=== PATIENT | female | born 1945 | race Caucasian/White ===

== ENCOUNTER 2018-04-07 12:00 | Emergency (ER) | payer MEDICARE ==
[~2018-04-07] VITALS: Ht 167.6 cm; Wt 57.2 kg
[2018-04-07] MEDS ORDERED: LIDOCAINE 1% 5ML-MPF INJ ONE (12:15)
[2018-04-07] MEDS ORDERED: SODIUM CHLORIDE 0.9% 1000ML 1,000 ML IV SCH (12:15)
[2018-04-07] MEDS ORDERED: ACETAMINOPHEN 325 MG TAB PO ONE (12:15)
[2018-04-07 13:01] VITALS: BP 147/66
== END 2018-04-07 13:04 | disposition home or self-care (01) ==
LOC: FSED 12:00
DX: S81.812A Laceration without foreign body, left lower leg, initial encounter (principal); W22.8XXA Striking against or struck by other objects, initial encounter; Y92.003 Bedroom of unspecified non-institutional (private) residence as the place of occurrence of the external cause
CPT/HCPCS: 99283; J7030

== ENCOUNTER 2018-04-17 08:47 | Emergency (ER) | payer MEDICARE ==
[~2018-04-17] VITALS: Ht 167.6 cm; Wt 57.2 kg
== END 2018-04-17 09:33 | disposition home or self-care (01) ==
LOC: FSED 08:47
DX: Z48.02 Encounter for removal of sutures (principal)
CPT/HCPCS: 99283; S0630

== ENCOUNTER 2018-07-25 09:20 | Emergency (ER) | payer MEDICARE, OTHER ==
[~2018-07-25] VITALS: Ht 167.6 cm; Wt 57.2 kg
--- OUTSIDE RECORDS SUMMARY | 2018-07-25 09:22 | XMS REPORT | Continuity of Care Document ---
Author Author [facility] Interface Address Unknown Phone Unavailable Problems Problem Status Onset Date Classification Date Reported Comments Source Atrial fibrillation Active Problem 04/21/2018 Chapin Lawson Essential hypertension Active Problem 04/21/2018 Chapin Lawson Paroxysmal atrial fibrillation Active Problem 04/21/2018 Chapin Lawson Insomnia, unspecified Active Problem 04/21/2018 Chapin Lawson Chronic diastolic heart failure Active Problem 04/21/2018 Chapin Lawson Mild intermittent asthma, uncomplicated Active Problem 04/21/2018 Chapin Lawson Heart failure, unspecified Active Problem 04/21/2018 Chapin Lawson Hypothyroidism, unspecified Active Problem 04/21/2018 Chapin Lawson Other specified hypothyroidism Active Diagnosis 04/21/2018 Chapin Lawson Allergic rhinitis, unspecified Active Problem 04/21/2018 Chapin Lawson Unspecified essential hypertension Active Problem 04/21/2018 Chapin Lawson Intrinsic asthma, unspecified Active Problem 04/21/2018 Chapin Lawson Intrinsic asthma, with exacerbation Active Problem 04/21/2018 Chapin Lawson Cirrhosis of liver without mention of alcohol Active Problem 04/21/2018 Chapin Lawson Unspecified hypothyroidism Active Problem 04/21/2018 Chapin Lawson Congestive heart failure, unspecified Active Problem 04/21/2018 Chapin Lawson Unspecified cardiac dysrhythmia Active Problem 04/21/2018 Chapin Lawson Allergic rhinitis, cause unspecified Active Problem 04/21/2018 Chapin Lawson Acute sinusitis, unspecified Active Diagnosis 01/15/2018 Chpain Lawson Acute bronchitis, unspecified Active Diagnosis 01/15/2018 Chapin Lawson Anemia, unspecified Active Diagnosis 04/21/2018 Chapin Lawson Cellulitis of left upper limb Active Diagnosis 04/21/2018 Chapin Lawson Laceration with foreign body of left forearm, initial encounter Active Diagnosis 04/21/2018 Chapin Lawson Medications Medication Details Route Status Patient Instructions Ordering Provider Order Date Source Augmentin 1 tablet Orally Active 875-125 MG Orally every 12 hrs Lawson 03/11/2018 Chapin Lawson Spironolactone take 1 tablet by mouth every day Orally Active 50 MG Orally Once a day Lawson 01/16/2018 Chapin Lawson Doxycycline Monohydrate 1 capsule Orally Active 100 mg Orally every 12 hrs [facility] 09/04/2017 Chapin Lawson Cefdinir 1 capsule Orally Active 300 MG Orally every 12 hrs [facility] 08/19/2017 Chapin Lawson Alprazolam 1 tablet Orally Active 0.5 MG Orally once every night prn [facility] 07/20/2017 Chapin Lawson Zantac 150 Maximum Strength 1 tablet Orally Active 150 MG Orally Twice a day [facility] 11/19/2015 Chapin Lawson Astelin 1 puff in each nostril Nasally Active 137 MCG/SPRAY Nasally Twice a day [facility] 07/25/2013 Chapin Lawson Valtrex 1 tablet Orally Active 1 GM Orally tid [facility] 09/15/2011 Chapin Lawson Sotalol HCl 1 tablet Orally Active 80 MG Orally Twice a day Lawson Chapin Lawson Furosemide take 1 tablet by mouth every day Orally Active 20 mg Orally [facility] Chapin Lawson Flonase 2 spray in each nostril Nasally Active 50 MCG/ACT Nasally Once a day Renny Lawson Synthroid take one tablet by mouth on an empty stomach in the morning once a day Orally Active 125 MCG Orally daily Renny Lawson ProAir HFA 2 puffs as needed Inhalation Active 108 (90 Base) MCG/ACT Inhalation every 4 hrs [facility] Chapin Lawson Isosorbide Mononitrate CR 1 tablet Orally Active 30 MG Orally Once a day Renny Lawson Eliquis 1 tablet Orally Active 5 MG Orally once a day Renny Lawson Medrol (Charles) as directed Orally Active 4 mg Orally Renny Lawson Atenolol 1 tablet Orally Active 50 MG Orally Once a day Renny Lawson Flonase 2 sprays in each nostril Nasally Active 50 MCG/ACT Nasally Once a day Renny Lawson Synthroid TAKE 1 TABLET BY MOUTH EVERY MORNING ON AN EMPTY STOMACH NA Active 125 Renny Lawson Symbicort 2 puffs Inhalation Active 80-4.5 MCG/ACT Inhalation Twice a day Lawson Chapin Lawson Allergies, Adverse Reactions, Alerts Substance Category Reaction Severity Reaction type Status Date Reported Comments Source Codeine Adverse Reaction Info Not Available Adverse Reaction Active 03/11/2018 Chapin Lawson Immunizations Immunization Date Given Site Status Last Updated Comments Source Results Order Name Results Value Reference Range Date Interpretation Comments Source Vital Signs Vital Sign Value Date Comments Source Weight 126 03/11/2018 Chapin Lawson Height 66 03/11/2018 Chapin Lawson Respitory Rate 17 03/11/2018 Chapin Lawson Heart Rate 70 03/11/2018 Chapin Y Lawson Diastolic (mm Hg) 72 03/11/2018 Chapin Y Lawson Systolic (mm Hg) 118 03/11/2018 Chapin Y Lawson Temperature Oral (F) 98.2 F 03/11/2018 Chapin Aquilino Lawson Weight 140 10/02/2017 Chapin Y Lawson Height 66 10/02/2017 Chapin Y Lawson Respitory Rate 16 10/02/2017 Chapin Y Lawson Heart Rate 69 10/02/2017 Chapin Y Lawson Diastolic (mm Hg) 72 10/02/2017 Chapin Y Lawson Systolic (mm Hg) 126 10/02/2017 Chapin Y Lawson Temperature Oral (F) 98.0 F 10/02/2017 Chapin Y Renny Weight 144 09/04/2017 Chapin Y Renny Height 66 09/04/2017 Hcapin Y Lawson Respitory Rate 16 09/04/2017 Chapin Y Renny Heart Rate 87 09/04/2017 Chapin Y Renny Diastolic (mm Hg) 70 09/04/2017 Chapin Y Renny Systolic (mm Hg) 110 09/04/2017 Chapin Y Renny Temperature Oral (F) 98.4 F 09/04/2017 Chapin Aquilino Lawson Weight 141 08/19/2017 Chapin Y Renny Height 66 08/19/2017 Chapin Y Renny Respitory Rate 16 08/19/2017 Chapin Aquilino Lawson Heart Rate 78 08/19/2017 Chapin Y Lawson Diastolic (mm Hg) 76 08/19/2017 Chapin Y Lawson Systolic (mm Hg) 118 08/19/2017 Chapin Y Lawson Temperature Oral (F) 97.9 F 08/19/2017 Chapin Lawson Encounters Location Location Details Encounter Type Encounter Number Reason For Visit Attending Provider ADM Date DC Date Status Source Procedures Procedure Code Date Perfomer Comments Source
--- OUTSIDE RECORDS SUMMARY | 2018-07-25 09:22 | XMS REPORT | Clinical Summary ---
Author Author [facility] Organization [facility] Address Unknown Phone Unavailable Care Team Providers Care Director Of Pupil Personnel Program Name Role Phone Chapin Lawson DO PCP Allergies Comments Active Allergy Reactions Severity Noted Date Hallucinations; suicidal ideation Codeine Other (See 10/05/2017 Comments) Medications End Date Status Medication Sig Dispensed Refills Start Date Active levothyroxine (SYNTHROID, Take 125 mcg 0 LEVOXYL) 125 mcg tablet by mouth every morning. Active ELIQUIS 5 mg tablet 2 (two) times 3 a day. 8 Active COMBIGAN 0.2-0.5 % Administer 1 3 ophthalmic solution drop to both 7 eyes 2 (two) times a day. Active dorzolamide (TRUSOPT) 2 % Administer 1 0 ophthalmic solution drop to the right eye 2 (two) times a day. Active albuterol (PROAIR Inhale 1 puff 0 HFA,PROVENTIL as needed. HFA,VENTOLIN HFA) 90 mcg/actuation inhaler Active ALPRAZolam (XANAX) 0.5 MG as needed. 0 tablet 7 Active fluticasone (FLONASE) 50 every 0 mcg/actuation nasal spray morning. 8 Active cycloSPORINE (RESTASIS) 1 drop 2 0 0.05 % ophthalmic (two) times a emulsion day. Active atenolol (TENORMIN) 50 MG Take 50 mg by 0 tablet mouth daily. Active flecainide (TAMBOCOR) 150 Take 150 mg 0 MG tablet by mouth 2 (two) times a day. Active spironolactone Take 50 mg by 0 (ALDACTONE) 50 MG tablet mouth daily. Active furosemide (LASIX) 40 mg Take 40 mg by 0 tablet mouth 2 (two) times a day. Active ranitidine (ZANTAC 75) 75 Take 75 mg by 0 MG tablet mouth daily. 04/23/2018 Discontinued sotalol (BETAPACE) 80 MG 2 (two) times 3 tablet a day. 8 04/23/2018 Discontinued spironolactone Take 100 mg 0 (ALDACTONE) 100 MG tablet by mouth every morning. 04/23/2018 Discontinued furosemide (LASIX) 20 mg Take 20 mg by 0 tablet mouth every morning. 11/23/2017 SUPREP BOWEL PREP KIT Take 2 354 mL 0 17.5-3.13-1.6 gram recon Bottles (354 8 soln mL total) by mouth once for 1 dose. Take as directed by physician 12/30/2017 traMADol (ULTRAM) 50 mg Take 1 tablet 30 tablet 0 tablet (50 mg total) 8 by mouth every 6 (six) hours as needed for moderate pain for up to 5 days. 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 Cui-following; pt forgot PPM card Cancer of ascending colon 12/23/2017 Malignant neoplasm of ascending colon 11/04/2017 Hepatitis B Encounters Care Team Description Date Type Specialty Viraj Cui MD Ep cardioversion [07440 (CPT)] 04/26/2018 Surgery Procedural Cardiology SinghBertha jimenes, [employer]ING [employer] FE[employer]ER 04/26/2018 Anesthesia Procedural Cardiology Event Viraj Cui MD AF (paroxysmal atrial fibrillation) 04/26/2018 Hospital Procedural Cardiology Encounter Man Munoz MD Malignant neoplasm of ascending colon (Primary Dx) 01/07/2018 Office Visit General Surgery Radha Knowles APRN 12/23/2017 Anesthesia General Surgery Event Man Munoz MD LAPAROSCOPIC RIGHT COLECTOMY 12/23/2017 Surgery General Surgery Man Munoz MD Cancer of ascending colon 12/23/2017 Hospital General Surgery - Encounter 12/25/2017 Man Munoz MD Preop examination (Primary Dx) 12/21/2017 Pre-Admit Pre-Admission Testing Testing Appointment John Pena MD Cirrhosis of liver without ascites, unspecified hepatic cirrhosis type 12/04/2017 Hospital Radiology Encounter John Pena MD Cirrhosis of liver without ascites, unspecified hepatic cirrhosis type (Primary Dx) 11/26/2017 Transcribe Radiology Orders Man Munoz MD 11/23/2017 Orders Only General Surgery Kemi Pleitez MD 11/16/2017 Hospital Radiology Encounter Man Munoz MD Preop examination (Primary Dx); Chronic atrial fibrillation; Congestive heart failure, unspecified congestive heart failure chronicity, unspecified congestive heart failure type; Anticoagulant long-term use; Dyspnea on exertion 11/16/2017 Pre-Admit Pre-Admission Testing Testing Appointment Man Munoz MD 11/06/2017 Orders Only General Surgery Man Munoz MD Malignant neoplasm of ascending colon (Primary Dx); Cirrhosis of liver with ascites, unspecified hepatic cirrhosis type 11/04/2017 Office Visit General Surgery Man Munoz MD Malignant neoplasm of cecum 11/04/2017 Lab Lab Man Munoz MD Malignant neoplasm of cecum 11/04/2017 Hospital Radiology Encounter Man Munoz MD Malignant neoplasm of cecum (Primary Dx) 10/30/2017 Orders Only General Surgery Man Munoz MD Malignant neoplasm of cecum (Primary Dx) 10/30/2017 Orders Only General Surgery Man Munoz MD Malignant neoplasm of hepatic flexure (Primary Dx) 10/14/2017 Office Visit General Surgery after 07/24/2017 Family History Medical History Relation Name Comments Cancer Father Hypertension Father Diabetes Mother Hypertension Mother Relation Name Status Comments Father Mother Social History Date Tobacco Use Types Packs/Day Years Used Never Smoker Smokeless Tobacco: Never Used Alcohol Use Drinks/Week oz/Week Comments No Sex Assigned at Date Recorded Not on file Industry Job Start Date Occupation Not on file Not on file Not on file Travel End Travel History Travel Start No recent travel history available. Last Filed Vital Signs Time Taken Vital Sign Reading 04/26/2018 9:30 AM CDT Blood Pressure 121/63 04/26/2018 9:30 AM CDT Pulse 66 04/26/2018 7:46 AM CDT Temperature 36.5 C (97.7 F) 04/26/2018 9:30 AM CDT Respiratory Rate 16 04/26/2018 9:30 AM CDT Oxygen Saturation 98% - Inhaled Oxygen - Concentration 04/26/2018 6:05 AM CDT Weight 57.4 kg (126 lb 8 oz) 04/26/2018 6:05 AM CDT Height 167.6 cm (5' 6") 04/26/2018 6:05 AM CDT Body Mass Index 20.42 Plan of Treatment Health Maintenance Due Date Last Done Comments BREAST CANCER SCREENING 1996 SHINGRIX VACCINE (1 of 2) 1996 ZOSTER VACCINE 2006 PNEUMOCOCCAL 2011 POLYSACCHARIDE VACCINE AGE 65 AND OVER PNEUMOCOCCAL-13 2011 INFLUENZA VACCINE 03/31/2018 COLON CANCER SCREENING 10/06/2027 10/06/2017 Implants Device Identifier Shelf Expiration Date Model / Serial / Lot Implanted Type Area Manufactur er [id number] / / Catheter Angio Handtools Repairer Ii 5fr 65cm Surgical N/A: N/A [employer] [place] - Implants; PERIPHERAL [id number] Expanders; INTERVENTI Implanted: 12/08/2017 (Quantity not Extenders; ON on file) Surgical VASCULAR Wires MIKAEL Procedures Comments Procedure Name Priority Date/Time Associated Diagnosis ECG 12-LEAD Routine 04/26/2018 8:25 AM CDT ECG 12-LEAD Routine 04/26/2018 7:45 AM CDT EP CARDIOVERSION Routine 04/26/2018 AF (paroxysmal atrial 7:34 AM CDT fibrillation) POC PANEL Routine 04/26/2018 6:48 AM CDT ESTIMATED GFR Routine 04/26/2018 6:48 AM CDT ECG PRE/POST OP Routine 04/26/2018 5:56 AM CDT ZZESTIMATED GFR Routine 12/25/2017 4:30 AM CDT PHOSPHORUS LEVEL Routine 12/25/2017 4:30 AM CDT MAGNESIUM LEVEL Routine 12/25/2017 4:30 AM CDT BASIC METABOLIC PANEL Routine 12/25/2017 4:30 AM CDT HC COMPLETE BLD COUNT Routine 12/25/2017 W/AUTO DIFF 4:30 AM CDT HC COMPLETE BLD COUNT Routine 12/24/2017 W/AUTO DIFF 5:30 AM CDT PROTHROMBIN TIME WITH INR Routine 12/24/2017 5:19 AM CDT ZZESTIMATED GFR Routine 12/24/2017 4:00 AM CDT HEPATIC FUNCTION PANEL Routine 12/24/2017 4:00 AM CDT PHOSPHORUS LEVEL Routine 12/24/2017 4:00 AM CDT MAGNESIUM LEVEL Routine 12/24/2017 4:00 AM CDT BASIC METABOLIC PANEL Routine 12/24/2017 4:00 AM CDT ECG 12-LEAD Routine 12/24/2017 1:12 AM CDT HI AN ELECTIVE Routine 12/23/2017 ENDOTRACHEAL AIRWAY 2:19 PM CDT Procedure Note - Vincent Kendrick, [employer]ER - 12/23/2017 2:19 PM CDT Airway Date/Time: 12/23/2017 1:36 PM Performed by: VINCENT KENDRICK Authorized by: DONNY COFFMAN Location: OR Urgency: Elective Difficult Airway: No Resident/C RNA/AA: VINCENT KENDRICK Performed by: resident/C RNA/AA Preoxygena betzaida with 100% O2: Yes C-spine Precaution s Maintained Throughout : Yes Mask Ventilatio n: Easy mask Final Airway Type: Endotrache al airway Final Endotrache al Airway: ETT Technique Used: Direct laryngosco py Devices/Me thods Used in Placement: Intubatin g stylet Insertion Site: Oral Blade Type: Carlos Laryngosco pe Blade/Vide olaryngosc ope Blade Size: 3 ETT Size (mm): 7.0 Measured from: Teeth ETT to Teeth (cm): 20 Placement Verified by: CO2 detection, direct visualizat ion and equal breath sounds Laryngosco pic view: Grade I - full view of glottis Rapid Sequence Induction (RSI): No Modified RSI: No Number of Attempts at Approach: 1 Easy atraumatic intubation ; dentition and oropharynx unchanged COLECTOMY, PARTIAL, 12/23/2017 Cancer of ascending colon LAPAROSCOPIC 12:45 PM CDT Case Notes AIRSEAL Special Needs AIRSEAL CV PACEMAKER PROGRAMMING STAT 12/23/2017 DL 10:23 AM CDT SURGICAL PATHOLOGY Routine 12/23/2017 REQUEST 8:45 AM CDT SURGICAL PATHOLOGY Routine 12/23/2017 REQUEST 8:45 AM CDT SURGICAL PATHOLOGY Routine 12/23/2017 REQUEST 8:45 AM CDT SURGICAL PATHOLOGY Routine 12/23/2017 REQUEST 8:45 AM CDT ANTIBODY IDENTIFICATION Routine 12/21/2017 4:04 PM CDT ZZESTIMATED GFR Routine 12/21/2017 4:04 PM CDT CBC HEMOGRAM Routine 12/21/2017 Preop examination 4:04 PM CDT TYPE AND SCREEN Routine 12/21/2017 Preop examination 4:04 PM CDT PARTIAL THROMBOPLASTIN Routine 12/21/2017 Preop examination TIME (PTT) 4:04 PM CDT PROTHROMBIN TIME WITH INR Routine 12/21/2017 Preop examination 4:04 PM CDT COMPREHENSIVE METABOLIC Routine 12/21/2017 Preop examination PANEL 4:04 PM CDT IR TRANSJUGULAR LIVER Routine 12/04/2017 Cirrhosis of liver BIOPSY 9:57 AM CDT without ascites, unspecified hepatic cirrhosis type SURGICAL PATHOLOGY Routine 12/04/2017 REQUEST 9:53 AM CDT XR CHEST 2 VW Routine 11/16/2017 Preop examination 9:48 AM CDT Congestive heart failure, unspecified congestive heart failure chronicity, unspecified congestive heart failure type Dyspnea on exertion ECG PRE/POST OP Routine 11/16/2017 Preop examination 9:01 AM CDT Chronic atrial fibrillation Congestive heart failure, unspecified congestive heart failure chronicity, unspecified congestive heart failure type C ANTIGEN PATIENT TYPING Routine 11/16/2017 8:54 AM CDT ANTIBODY IDENTIFICATION Routine 11/16/2017 8:54 AM CDT ZZESTIMATED GFR Routine 11/16/2017 8:54 AM CDT CBC HEMOGRAM Routine 11/16/2017 Preop examination 8:54 AM CDT TYPE AND SCREEN Routine 11/16/2017 Preop examination 8:54 AM CDT PARTIAL THROMBOPLASTIN Routine 11/16/2017 Preop examination TIME (PTT) 8:54 AM CDT Anticoagulant long-term use PROTHROMBIN TIME WITH INR Routine 11/16/2017 Preop examination 8:54 AM CDT Anticoagulant long-term use COMPREHENSIVE METABOLIC Routine 11/16/2017 Preop examination PANEL 8:[address] CHEST W CONTRAST STAT 11/04/2017 Malignant neoplasm of ABDOMEN W WO CONTRAST 3:00 PM SECURITY MESSENGER cecum PELVIS W CONTRAST ESTIMATED GFR Routine 11/04/2017 12:55 PM SECURITY MESSENGER POC CREATININE Routine 11/04/2017 12:55 PM SECURITY MESSENGER PARTIAL THROMBOPLASTIN Routine 10/30/2017 Malignant neoplasm of TIME (PTT) 10:36 AM SECURITY MESSENGER cecum PROTHROMBIN TIME WITH INR Routine 10/30/2017 Malignant neoplasm of 10:36 AM SECURITY MESSENGER cecum HEPATIC FUNCTION PANEL Routine 10/30/2017 Malignant neoplasm of 10:36 AM SECURITY MESSENGER cecum CARCINOEMBRYONIC ANTIGEN Routine 10/30/2017 Malignant neoplasm of (CEA) 10:36 AM SECURITY MESSENGER cecum COMPREHENSIVE METABOLIC Routine 10/30/2017 Malignant neoplasm of PANEL 10:36 AM SECURITY MESSENGER cecum CBC WITH PLATELET AND Routine 10/30/2017 Malignant neoplasm of DIFFERENTIAL 10:36 AM SECURITY MESSENGER cecum after 07/24/2017 Results * ECG 12 lead (04/26/2018 8:25 AM CDT) Only the most recent of 3 results within the time period is included. Ventricular rate 78 [facility] Atrial rate 78 [facility] HI interval 198 [facility] QRSD interval 82 [facility] QT interval 372 [facility] QTC interval 424 [facility] P axis 1 49 [facility] QRS axis 1 -2 [facility] T wave axis 27 [facility] EKG impression Sinus rhythm with occasional [facility] premature ventricular complexes-Inferior infarct , age undetermined-Abnormal ECG-In automated comparison with ECG of 26-APR-2018 07:45,-Sinus rhythm has replaced Electronic atrial pacemaker-Questionable change in QRS duration-Minimal criteria for Septal infarct are no longer present-Criteria for Lateral infarct are no longer present-Inferior infarct is now present- Performing Organization Address [facility] Phone Number [facility] [address] [place] [address] * Cv electrophysiology procedure (04/26/2018 7:34 AM CDT) Narrative Performed At [facility] After IV sedation with Propofol, Synchronized bipolar cardioversion was done using 200 Joules of energy delivered via AP Zoll Pads with conversion of the rhythm to AV paced. Performing Organization Address [facility] Phone Number [facility] [address] [place] [address] * Estimated GFR (04/26/2018 6:48 AM CDT) Only the most recent of 2 results within the time period is included. GFR Non Af Amer >90 mL/min/1.73 m2 [facility] DEPARTMENT OF PATHOLOGY AND GENOMIC MEDICINE GFR Af Amer >90 mL/min/1.73 m2 [facility] DEPARTMENT OF Comment: PATHOLOGY AND Chronic kidney disease: <60 GENOMIC MEDICINE mL/min/1.73m2 Kidney failure: <15 mL/min/1.73m2 The estimated GFR is calculated from the IDMS-traceable Modification of Diet in Renal Disease Equation. The accuracy of the calculation is poor when the creatinine is normal. Calculated values >90 mL/min/1.73m2 are not reported. This equation has not been validated in children (<18 years), women, the elderly (>70 years), or ethnic groups other than Caucasians and Americans. Specimen Blood Performing Organization Address [facility] Phone Number [place] [phone] PATHOLOGY AND GENOMIC MEDICINE * POC panel (04/26/2018 6:48 AM CDT) POC sodium 140 135 - 148 mmol/L [facility] DEPARTMENT OF PATHOLOGY AND GENOMIC MEDICINE POC potassium 4.1 3.5 - 5.0 mmol/L [facility] DEPARTMENT OF PATHOLOGY AND GENOMIC MEDICINE POC chloride 106 99 - 109 mmol/L [facility] DEPARTMENT OF PATHOLOGY AND GENOMIC MEDICINE POC CO2 23 (L) 24 - 31 mmol/L [facility] DEPARTMENT OF PATHOLOGY AND GENOMIC MEDICINE POC glucose 89 65 - 99 mg/dL [facility] DEPARTMENT OF PATHOLOGY AND GENOMIC MEDICINE POC BUN 26 (H) 8 - 24 mg/dL [facility] DEPARTMENT OF PATHOLOGY AND GENOMIC MEDICINE POC creatinine 0.6 0.5 - 0.9 mg/dl [facility] DEPARTMENT OF PATHOLOGY AND GENOMIC MEDICINE POC hematocrit 44 37 - 47 % [facility] DEPARTMENT OF PATHOLOGY AND GENOMIC MEDICINE POC anion gap 16 8 - 20 mmol/L [facility] DEPARTMENT OF Comment: PATHOLOGY AND Meter ID: [id number] GENOMIC MEDICINE Concrete Vibrator Operator: Milagro Santiago Performing Organization Address [facility] Phone Number [address] [address] PATHOLOGY AND GENOMIC MEDICINE * ECG Pre/Post Op (04/26/2018 5:56 AM CDT) Only the most recent of 2 results within the time period is included. Ventricular rate 70 [facility] Atrial rate 70 [facility] HI interval 192 [facility] QRSD interval 144 [facility] QT interval 476 [facility] QTC interval 514 [facility] P axis 1 96 [facility] QRS axis 1 119 [facility] T wave axis -47 [facility] EKG impression Ventricular-paced [facility] rhythm-Abnormal ECG-In automated comparison with ECG of 24-DEC-2017 01:12,-No significant change was found- Performing Organization Address City/State/Zipcode Phone Number [facility] [address] [place] [address] * Estimated GFR (12/25/2017 4:30 AM CDT) Only the most recent of 4 results within the time period is included. GFR Non Af Amer 55 (A) mL/min/1.73 m2 [facility] DEPARTMENT OF PATHOLOGY AND GENOMIC MEDICINE GFR Af Amer 66 mL/min/1.73 m2 [facility] DEPARTMENT OF Comment: PATHOLOGY AND Chronic kidney disease: <60 GENOMIC MEDICINE mL/min/1.73m2 Kidney failure: <15 mL/min/1.73m2 The estimated GFR is calculated from the IDMS-traceable Modification of Diet in Renal Disease Equation. The accuracy of the calculation is poor when the creatinine is normal. Calculated values >90 mL/min/1.73m2 are not reported. This equation has not been validated in children (<18 years), women, the elderly (>70 years), or ethnic groups other than Caucasians and Americans. Specimen Plasma specimen Performing Organization Address City/[facility] Phone Number [facility] [address] [place] [address] PATHOLOGY AND GENOMIC MEDICINE * CBC with platelet and differential (12/25/2017 4:30 AM CDT) Only the most recent of 3 results within the time period is included. WBC 11.20 (H) 4.50 - 11.00 k/uL [facility] DEPARTMENT OF PATHOLOGY AND GENOMIC MEDICINE RBC 3.36 (L) 4.20 - 5.50 m/uL [facility] DEPARTMENT OF PATHOLOGY AND GENOMIC MEDICINE HGB 9.1 (L) 12.0 - 16.0 g/dL [facility] DEPARTMENT OF PATHOLOGY AND GENOMIC MEDICINE HCT 29.6 (L) 37.0 - 47.0 % [facility] DEPARTMENT OF PATHOLOGY AND GENOMIC MEDICINE MCV 88.1 82.0 - 100.0 fL [facility] DEPARTMENT OF PATHOLOGY AND GENOMIC MEDICINE MCH 27.1 27.0 - 34.0 pg [facility] DEPARTMENT OF PATHOLOGY AND GENOMIC MEDICINE MCHC 30.7 (L) 31.0 - 37.0 g/dL [facility] DEPARTMENT OF PATHOLOGY AND GENOMIC MEDICINE RDW - SD 61.3 (H) 37.0 - 55.0 fL [facility] DEPARTMENT OF PATHOLOGY AND GENOMIC MEDICINE MPV 10.3 8.8 - 13.2 fL [facility] DEPARTMENT OF PATHOLOGY AND GENOMIC MEDICINE Platelet count 201 150 - 400 k/uL [facility] DEPARTMENT OF PATHOLOGY AND GENOMIC MEDICINE Nucleated RBC 0.00 /100 WBC [facility] DEPARTMENT OF PATHOLOGY AND GENOMIC MEDICINE Neutrophils 83.1 (H) 39.0 - 69.0 % [facility] DEPARTMENT OF PATHOLOGY AND GENOMIC MEDICINE Lymphocytes 8.5 (L) 25.0 - 45.0 % [facility] DEPARTMENT OF PATHOLOGY AND GENOMIC MEDICINE Monocytes 7.7 0.0 - 10.0 % [facility] DEPARTMENT OF PATHOLOGY AND GENOMIC MEDICINE Eosinophils 0.1 0.0 - 5.0 % [facility] DEPARTMENT OF PATHOLOGY AND GENOMIC MEDICINE Basophils 0.2 0.0 - 1.0 % [facility] DEPARTMENT OF PATHOLOGY AND GENOMIC MEDICINE Immature granulocytes 0.4Comment: "Immature 0.0 - 1.0 % [facility] DEPARTMENT OF granulocytes" (promyelocytes, PATHOLOGY AND myelocytes, metamyelocytes) GENOMIC MEDICINE Specimen Blood Performing Organization Address City/[facility] [place] [address] PATHOLOGY AND GENOMIC MEDICINE * Phosphorus level (12/25/2017 4:30 AM CDT) Only the most recent of 2 results within the time period is included. Phosphorus 2.3 (L) 2.4 - 4.5 mg/dL [facility] DEPARTMENT OF PATHOLOGY AND GENOMIC MEDICINE Specimen Plasma specimen Performing Organization Address City/[facility] [place] [address] PATHOLOGY AND [facility] * Magnesium level (12/25/2017 4:30 AM CDT) Only the most recent of 2 results within the time period is included. Magnesium 2.2 1.6 - 2.4 mg/dL [facility] DEPARTMENT OF PATHOLOGY AND GENOMIC MEDICINE Specimen Plasma specimen Performing Organization Address City/[facility] [place] [address] PATHOLOGY AND GENOMIC MEDICINE * Basic metabolic panel (12/25/2017 4:30 AM CDT) Only the most recent of 2 results within the time period is included. Sodium 135 135 - 148 mEq/L [facility] DEPARTMENT OF PATHOLOGY AND GENOMIC MEDICINE Potassium 4.3 3.5 - 5.0 mEq/L [facility] DEPARTMENT OF PATHOLOGY AND GENOMIC MEDICINE Chloride 104 98 - 112 mEq/L [facility] DEPARTMENT OF PATHOLOGY AND GENOMIC MEDICINE CO2 21 (L) 24 - 31 mEq/L [facility] DEPARTMENT OF PATHOLOGY AND GENOMIC MEDICINE Anion gap 10 7 - 15 mEq/L [facility] DEPARTMENT OF Comment: PATHOLOGY AND Starting from November GENOMIC MEDICINE , anion gap calculation no longer incorporates potassium. Please note the change. BUN 24 (H) 8 - 23 mg/dL [facility] DEPARTMENT OF PATHOLOGY AND GENOMIC MEDICINE Creatinine 1.0 (H) 0.5 - 0.9 mg/dL [facility] DEPARTMENT OF PATHOLOGY AND GENOMIC MEDICINE Glucose 111 (H) 65 - 99 mg/dL [facility] DEPARTMENT OF PATHOLOGY AND GENOMIC MEDICINE Calcium 8.1 (L) 8.8 - 10.2 mg/dL [facility] DEPARTMENT OF PATHOLOGY AND GENOMIC MEDICINE Specimen Plasma specimen Performing Organization Address City/[facility]/[place] [address] PATHOLOGY AND GENOMIC MEDICINE * Prothrombin time with INR (12/24/2017 5:19 AM CDT) Only the most recent of 4 results within the time period is included. Prothrombin time 15.7 (H) 12.0 - 15.0 sec [facility] DEPARTMENT OF PATHOLOGY AND GENOMIC MEDICINE INR 1.2 [facility] DEPARTMENT OF Comment: PATHOLOGY AND The International Normalized GENOMIC MEDICINE Ratio (INR) is a therapeutic monitoring tool for patients who are stable on oral anticoagulant therapy. An INR of 2.0-3.0 is suggested for deep vein thrombosis/pulmonary embolism. Specimen Blood Performing Organization Address City/[facility] Phone Number [address] [address] PATHOLOGY AND GENOMIC MEDICINE * Hepatic function panel (12/24/2017 4:00 AM CDT) Only the most recent of 2 results within the time period is included. Albumin 3.5 3.5 - 5.0 g/dL [facility] DEPARTMENT OF PATHOLOGY AND GENOMIC MEDICINE Total bilirubin 0.5 0.0 - 1.2 mg/dL [facility] DEPARTMENT OF PATHOLOGY AND GENOMIC MEDICINE Bilirubin direct <0.2 0.0 - 0.3 mg/dL [facility] DEPARTMENT OF PATHOLOGY AND GENOMIC MEDICINE Alkaline phosphatase 64 35 - 104 U/L [facility] DEPARTMENT OF PATHOLOGY AND GENOMIC MEDICINE Protein 6.8 6.3 - 8.3 g/dL [facility] DEPARTMENT OF Comment: PATHOLOGY AND GENOMIC MEDICINE 4.6-7.0 g/dL 1 week 4.4-7.6 g/dL 7 months-1year 5.1-7.3 g/dL 1-2 years5.6-7 .5 g/dL >3 years6.0-8 .0 g/dL 18-150 6.3-8.3 g/dL ALT 10 5 - 50 U/L [facility] DEPARTMENT OF PATHOLOGY AND GENOMIC MEDICINE AST 28 10 - 35 U/L [facility] DEPARTMENT OF PATHOLOGY AND GENOMIC MEDICINE Specimen Plasma specimen Performing Organization Address City/[facility] [place] [address] PATHOLOGY AND GENOMIC MEDICINE * CV pacemaker defib or ilr interrogation (12/23/2017 10:23 AM CDT) Narrative Performed At Performing Organization Address [facility] [place] [address] * Surgical pathology request (12/23/2017 8:45 AM CDT) Only the most recent of 5 results within the time period is included. [facility] DEPARTMENT OF PATHOLOGY AND GENOMIC MEDICINE Surgical pathology report See link below for PDF Lab [facility] DEPARTMENT OF Report PATHOLOGY AND GENOMIC MEDICINE Result status This is Supplemental Report to [facility] DEPARTMENT OF [id number] PATHOLOGY AND GENOMIC MEDICINE Performing Organization Address [facility] [place] [address] PATHOLOGY AND GENOMIC MEDICINE * Antibody identification (12/21/2017 4:04 PM CDT) Only the most recent of 2 results within the time period is included. Antibody ID POS, Anti-D [facility] DEPARTMENT OF PATHOLOGY AND GENOMIC MEDICINE Antibody ID POS, Anti-C [facility] DEPARTMENT OF PATHOLOGY AND GENOMIC MEDICINE Performing Organization Address City/[facility] [place] [address] PATHOLOGY AND GENOMIC MEDICINE * Partial thromboplastin time, activated (12/21/2017 4:04 PM CDT) Only the most recent of 3 results within the time period is included. PTT 33.5 23.0 - 36.0 sec [facility] DEPARTMENT OF Comment: PATHOLOGY AND PTT therapeutic range for GENOMIC MEDICINE unfractionated heparin is 61.0-112.0 seconds which corresponds to Anti-Xa 0.3-0.7 U/ml. Specimen Blood Performing Organization Address City/[facility]/Zipcode Phone Number [facility] [place] [address] PATHOLOGY AND GENOMIC MEDICINE * CBC hemogram (12/21/2017 4:04 PM CDT) Only the most recent of 2 results within the time period is included. WBC 5.71 4.50 - 11.00 k/uL [facility] DEPARTMENT OF PATHOLOGY AND GENOMIC MEDICINE RBC 4.11 (L) 4.20 - 5.50 m/uL [facility] DEPARTMENT OF PATHOLOGY AND GENOMIC MEDICINE HGB 11.1 (L) 12.0 - 16.0 g/dL [facility] DEPARTMENT OF PATHOLOGY AND GENOMIC MEDICINE HCT 36.1 (L) 37.0 - 47.0 % [facility] DEPARTMENT OF PATHOLOGY AND GENOMIC MEDICINE MCV 87.8 82.0 - 100.0 fL [facility] DEPARTMENT OF PATHOLOGY AND GENOMIC MEDICINE MCH 27.0 27.0 - 34.0 pg [facility] DEPARTMENT OF PATHOLOGY AND GENOMIC MEDICINE MCHC 30.7 (L) 31.0 - 37.0 g/dL [facility] DEPARTMENT OF PATHOLOGY AND GENOMIC MEDICINE RDW - SD 61.1 (H) 37.0 - 55.0 fL [facility] DEPARTMENT OF PATHOLOGY AND GENOMIC MEDICINE MPV 11.0 8.8 - 13.2 fL [facility] DEPARTMENT OF PATHOLOGY AND GENOMIC MEDICINE Platelet count 240 150 - 400 k/uL [facility] DEPARTMENT OF PATHOLOGY AND GENOMIC MEDICINE Nucleated RBC 0.00 /100 WBC [facility] DEPARTMENT OF PATHOLOGY AND GENOMIC MEDICINE Specimen Blood Performing Organization Address City/[facility] Phone Number [facility] [place] [address] PATHOLOGY AND GENOMIC MEDICINE * Type and screen (12/21/2017 4:04 PM CDT) Only the most recent of 2 results within the time period is included. ABO grouping A [facility] DEPARTMENT OF PATHOLOGY AND GENOMIC MEDICINE Rh type NEG [facility] DEPARTMENT OF PATHOLOGY AND GENOMIC MEDICINE Antibody screen (gel) POS [facility] DEPARTMENT OF PATHOLOGY AND GENOMIC MEDICINE Specimen Blood Performing Organization Address City/[facility]/Zipcode Phone Number [facility] [place] [address] PATHOLOGY AND GENOMIC MEDICINE * Comprehensive metabolic panel (12/21/2017 4:04 PM CDT) Only the most recent of 3 results within the time period is included. Sodium 138 135 - 148 mEq/L [facility] DEPARTMENT OF PATHOLOGY AND GENOMIC MEDICINE Potassium 4.1 3.5 - 5.0 mEq/L [facility] DEPARTMENT OF PATHOLOGY AND GENOMIC MEDICINE Chloride 100 98 - 112 mEq/L [facility] DEPARTMENT OF PATHOLOGY AND GENOMIC MEDICINE CO2 21 (L) 24 - 31 mEq/L [facility] DEPARTMENT OF PATHOLOGY AND GENOMIC MEDICINE Anion gap 17 (H) 7 - 15 mEq/L [facility] DEPARTMENT OF Comment: PATHOLOGY AND Starting from November GENOMIC MEDICINE , anion gap calculation no longer incorporates potassium. Please note the change. BUN 23 8 - 23 mg/dL [facility] DEPARTMENT OF PATHOLOGY AND GENOMIC MEDICINE Creatinine 1.1 (H) 0.5 - 0.9 mg/dL [facility] DEPARTMENT OF PATHOLOGY AND GENOMIC MEDICINE Glucose 66 65 - 99 mg/dL [facility] DEPARTMENT OF PATHOLOGY AND GENOMIC MEDICINE Calcium 9.6 8.8 - 10.2 mg/dL [facility] DEPARTMENT OF PATHOLOGY AND GENOMIC MEDICINE Protein 7.6 6.3 - 8.3 g/dL [facility] DEPARTMENT OF Comment: PATHOLOGY AND [place] GENOMIC MEDICINE 4.6-7.0 g/dL 1 week 4.4-7.6 g/dL 7 months-1year 5.1-7.3 g/dL 1-2 years5.6-7 .5 g/dL >3 years6.0-8 .0 g/dL 18-150 6.3-8.3 g/dL Albumin 3.8 3.5 - 5.0 g/dL [facility] DEPARTMENT OF PATHOLOGY AND GENOMIC MEDICINE A/G ratio 1.0 0.7 - 3.8 [facility] DEPARTMENT OF PATHOLOGY AND GENOMIC MEDICINE Alkaline phosphatase 81 35 - 104 U/L [facility] DEPARTMENT OF PATHOLOGY AND GENOMIC MEDICINE AST 25 10 - 35 U/L [facility] DEPARTMENT OF PATHOLOGY AND GENOMIC MEDICINE ALT 14 5 - 50 U/L [facility] DEPARTMENT OF PATHOLOGY AND GENOMIC MEDICINE Total bilirubin 0.3 0.0 - 1.2 mg/dL [facility] DEPARTMENT OF PATHOLOGY AND GENOMIC MEDICINE Specimen Plasma specimen Performing Organization Address City/State/Zipcode Phone Number [facility] DEPARTMENT OF [address] [place] [address] PATHOLOGY AND GENOMIC MEDICINE * IR Transjugular Liver Biopsy (12/04/2017 9:57 AM CDT) Narrative Performed At Examination:IR TRANSJUGULAR LIVER BIOPSY [facility] Clinical history:"K74.60 Unspecified cirrhosis of liver, K74.60" Comparison:Abdominopelvic CT imaging dated 11/04/2017 Anesthesia:Lidocaine solution was injected into the involved tissues. Conscious sedation:After the risks and benefits of conscious sedation were discussed, midazolam and fentanyl were administered intravenously.Throughout the conscious sedation duration, the patient was continuously monitored by a registered nurse. The physician intraservice [id number] time with the patient was 21 minutes. Reference air kerma:64 mGy. Technique:The patient was prepared using sterile technique after signed, informed consent was obtained. Maximal sterile barrier technique was implemented. The right internal jugular vein was imaged sonographically and was found to be patent and appropriate percutaneous access.Under real-time sonographic guidance, the vessel was accessed using a 21-gauge needle with real-time visualization of needle entry into the vessel.A sonographic image of the accessed vessel was obtained as permanent documentation.Through the needle, a microwire was inserted and advanced centrally.Using routine Seldinger technique, the microwire was exchanged for a standard guidewire that was advanced into the inferior vena cava.After the percutaneous tissues were dilated, a 9 Croatian vascular sheath was introduced [id number] and advanced into the right hepatic vein. Venography of the cannulated vein, of the junction of the hepatic veins and inferior vena cava, and of the uppermost portion of the inferior vena cava was performed by injection of contrast through the sheath with the tip in the sheath positioned within the cannulated hepatic vein.This demonstrated unremarkable patency and dilatation/prominence of the cannulated middle hepatic vein without evidence of venous outflow obstruction; these findings are without change as compared to the aforementioned CT imaging.Additionally, the confluence of the hepatic vein/inferior vena cava and the opacified portions of the inferior vena cava are similarly patent, prominent, and otherwise unremarkable in venographic appearance. The 18-gauge core biopsy needle system was introduced through the sheath and three 18-gauge core samples of the right liver lobe obtained using routine technique.The needle system was removed. A 5 Croatian angled catheter was introduced through the sheath, positioned accordingly, and pressure measurements obtained as follows: "Wedged" hepatic vein:17 mmHg "Free" hepatic vein:13 mmHg Right atrium:10 mmHg All instrumentation was removed from the patient's neck and hemostasis established by holding direct pressure at the venotomy. Estimated blood loss:Less than 2 cc. Complications:None. Specimens removed:As above. Assistants:None. IMPRESSION: 18-gauge core biopsy samples of the right liver lobe were obtained via a transjugular route using image guidance and without incident as described above. Transcatheter venous pressure measurements were obtained and are listed above. Hepatic venography was performed and reveals no evidence of venous stenosis or other abnormality that might cause hepatic venous outflow obstruction.The hepatic veins and the suprahepatic inferior vena cava are prominent, as before. Thank you for allowing us to participate in the care of your patient. [facility]-[id number] Procedure Note Hm Interface, Radiology Results Incoming - 12/04/2017 3:02 PM CDT Examination: IR TRANSJUGULAR LIVER BIOPSY Clinical history: "K74.60 Unspecified cirrhosis of liver, K74.60" Comparison: Abdominopelvic CT imaging dated 11/04/2017 Anesthesia: Lidocaine solution was injected into the involved tissues. Conscious sedation: After the risks and benefits of conscious sedation were discussed, midazolam and fentanyl were administered intravenously. Throughout the conscious sedation duration, the patient was continuously monitored by a registered nurse. The physician intraservice [id number] time with the patient was 21 minutes. Reference air kerma: 64 mGy. Technique: The patient was prepared using sterile technique after signed, informed consent was obtained. Maximal sterile barrier technique was implemented. The right internal jugular vein was imaged sonographically and was found to be patent and appropriate percutaneous access. Under real-time sonographic guidance, the vessel was accessed using a 21-gauge needle with real-time visualization of needle entry into the vessel. A sonographic image of the accessed vessel was obtained as permanent documentation. Through the needle, a microwire was inserted and advanced centrally. Using routine Seldinger technique, the microwire was exchanged for a standard guidewire that was advanced into the inferior vena cava. After the percutaneous tissues were dilated, a 9 Croatian vascular sheath was introduced [id number] and advanced into the right hepatic vein. Venography of the cannulated vein, of the junction of the hepatic veins and inferior vena cava, and of the uppermost portion of the inferior vena cava was performed by injection of contrast through the sheath with the tip in the sheath positioned within the cannulated hepatic vein. This demonstrated unremarkable patency and dilatation/prominence of the cannulated middle hepatic vein without evidence of venous outflow obstruction; these findings are without change as compared to the aforementioned CT imaging. Additionally, the confluence of the hepatic vein/inferior vena cava and the opacified portions of the inferior vena cava are similarly patent, prominent, and otherwise unremarkable in venographic appearance. The 18-gauge core biopsy needle system was introduced through the sheath and three 18-gauge core samples of the right liver lobe obtained using routine technique. The needle system was removed. A 5 Croatian angled catheter was introduced through the sheath, positioned accordingly, and pressure measurements obtained as follows: "Wedged" hepatic vein: 17 mmHg "Free" hepatic vein: 13 mmHg Right atrium: 10 mmHg All instrumentation was removed from the patient's neck and hemostasis established by holding direct pressure at the venotomy. Estimated blood loss: Less than 2 cc. Complications: None. Specimens removed: As above. Assistants: None. IMPRESSION: 18-gauge core biopsy samples of the right liver lobe were obtained via a transjugular route using image guidance and without incident as described above. Transcatheter venous pressure measurements were obtained and are listed above. Hepatic venography was performed and reveals no evidence of venous stenosis or other abnormality that might cause hepatic venous outflow obstruction. The hepatic veins and the suprahepatic inferior vena cava are prominent, as before. Thank you for allowing us to participate in the care of your patient. [facility]-[id number] Performing Organization Address City/State/Zipcode Phone Number [facility] [address] [place] [address] * XR Chest 2 Vw (11/16/2017 9:48 AM CDT) Narrative Performed At Study:[facility] 2 [facility]: Z01.818 Encounter for other preprocedural examination, I50.9 Heart failureunspecified, Congestive Heart Failure, SHORTNESS OF BREATH, Preop COMPARISON: October 27, 2013 IMPRESSION: A single view of the chest. Left chest pacer and leads are in stable position.There is no focal consolidation, pleural effusion or pneumothorax.Cardiac silhouette is mildly enlarged, stable.Visualized osseous structures arestable. [facility]-[id number] Procedure Note Hm Interface, Radiology Results Incoming - 11/16/2017 10:04 AM CDT Study:XR CHEST 2 VW History: Z01.818 Encounter for other preprocedural examination, I50.9 Heart failure unspecified, Congestive Heart Failure, SHORTNESS OF BREATH, Preop COMPARISON: October 27, 2013 IMPRESSION: A single view of the chest. Left chest pacer and leads are in stable position. There is no focal consolidation, pleural effusion or pneumothorax. Cardiac silhouette is mildly enlarged, stable. Visualized osseous structures are stable. [facility]-[id number] Performing Organization Address City/State/Zipcode Phone Number [facility] [address] [place] [address] * C antigen patient typing (11/16/2017 8:54 AM CDT) C Antigen Patient Typing NEG [facility] DEPARTMENT OF PATHOLOGY AND GENOMIC MEDICINE Performing Organization Address City/State/Zipcode Phone Number [facility] DEPARTMENT OF [address] [place] [phone] PATHOLOGY AND GENOMIC MEDICINE * CT Chest W Contrast Abdomen W Wo Contrast Pelvis W Contrast (11/04/2017 3:00 PM SECURITY MESSENGER) Narrative Performed At EXAMINATION:CT CHEST W CONTRAST ABDOMEN W WO CONTRAST PELVIS W CONTRAST [facility] CLINICAL HISTORY:C18.0 Malignant neoplasm of cecum, Colon Cancer TECHNIQUE: Axial images of the abdomen were obtained prior to intravenous contrast administration. Multiple axial images of the chest, abdomen, and pelvis were obtained following intravenous administration of iodinated contrast. Sagittal and coronal computerized reformatted images were obtained. CT imaging was performed with iterative reconstruction techniques and/or automated exposure control to reduce radiation dose. COMPARISON:None. FINDINGS: Chest: 1. There are scattered tiny sub-5 mm clustered centrilobular nodules in the right upper and middle lobes, some demonstrating tree-in-bud distribution, compatible with sequela of infectious bronchiolitis. They are likely chronic. There are few calcified bilateral granulomas and minimal scarring is present in the lingula and middle lobe. There is no consolidation and no nodules that are suspicious for metastatic disease are seen. 2.No pleural or pericardial effusion is present. 3.No significant thoracic lymphadenopathy is seen. 4.There is moderate cardiomegaly with right atrial and right ventricular dilation. Dual-chamber pacemaker is present. 5.Bilateral breast implants are present. Abdomen and Pelvis: 1. Irregular circumferential thickening of the proximal ascending colon likely represents the primary malignancy, and involves an approximately 4 cm length, beginning at the ileocecal junction. 2.There are a few mildly prominent adjacent ileocecal lymph nodes, for example measuring 10 x 5 mm on image 193, nonspecific. No other suspicious lymph nodes are seen. 3.The liver is cirrhotic, without liver mass. There is mild perihepatic ascites consistent with portal hypertension. No splenomegaly or varices are seen. 4.Mild gallbladder wall thickening is most likely due to underlying cirrhosis rather than inflammatory gallbladder disease. 5.The pancreas, adrenals, kidneys, and urinary bladder are unremarkable. 6.The stomach and small bowel are unremarkable. 7.There is scattered atherosclerosis. Skeletal: No suspicious skeletal lesion is seen. IMPRESSION: 1.Segmental thickening of the ascending colon consistent with neoplasm. Small nonspecific but not definitively metastatic regional ileocolic lymph nodes. No signs of distant metastatic disease. 2.Cirrhosis and mild ascites. 3.Tiny postinflammatory nodules in the right lung. 4.Right-sided cardiomegaly. [facility]-[id number] Procedure Note [facility], Radiology Results Incoming - 11/04/2017 3:30 PM SECURITY MESSENGER EXAMINATION: CT CHEST W CONTRAST ABDOMEN W WO CONTRAST PELVIS W CONTRAST CLINICAL HISTORY: C18.0 Malignant neoplasm of cecum, Colon Cancer TECHNIQUE: Axial images of the abdomen were obtained prior to intravenous contrast administration. Multiple axial images of the chest, abdomen, and pelvis were obtained following intravenous administration of iodinated contrast. Sagittal and coronal computerized reformatted images were obtained. CT imaging was performed with iterative reconstruction techniques and/or automated exposure control to reduce radiation dose. COMPARISON: None. FINDINGS: Chest: 1. There are scattered tiny sub-5 mm clustered centrilobular nodules in the right upper and middle lobes, some demonstrating tree-in-bud distribution, compatible with sequela of infectious bronchiolitis. They are likely chronic. There are few calcified bilateral granulomas and minimal scarring is present in the lingula and middle lobe. There is no consolidation and no nodules that are suspicious for metastatic disease are seen. 2. No pleural or pericardial effusion is present. 3. No significant thoracic lymphadenopathy is seen. 4. There is moderate cardiomegaly with right atrial and right ventricular dilation. Dual-chamber pacemaker is present. 5. Bilateral breast implants are present. Abdomen and Pelvis: 1. Irregular circumferential thickening of the proximal ascending colon likely represents the primary malignancy, and involves an approximately 4 cm length, beginning at the ileocecal junction. 2. There are a few mildly prominent adjacent ileocecal lymph nodes, for example measuring 10 x 5 mm on image 193, nonspecific. No other suspicious lymph nodes are seen. 3. The liver is cirrhotic, without liver mass. There is mild perihepatic ascites consistent with portal hypertension. No splenomegaly or varices are seen. 4. Mild gallbladder wall thickening is most likely due to underlying cirrhosis rather than inflammatory gallbladder disease. 5. The pancreas, adrenals, kidneys, and urinary bladder are unremarkable. 6. The stomach and small bowel are unremarkable. 7. There is scattered atherosclerosis. Skeletal: No suspicious skeletal lesion is seen. IMPRESSION: 1. Segmental thickening of the ascending colon consistent with neoplasm. Small nonspecific but not definitively metastatic regional ileocolic lymph nodes. No signs of distant metastatic disease. 2. Cirrhosis and mild ascites. 3. Tiny postinflammatory nodules in the right lung. 4. Right-sided cardiomegaly. [facility]-[id number] Performing Organization Address [facility] Phone Number [facility] [address] [place] [address] * POC creatinine (11/04/2017 12:55 PM SECURITY MESSENGER) POC creatinine 0.9Comment: Testing performed 0.5 - 0.9 mg/dl [facility] DEPARTMENT OF on the ISTAT instrument by RN PATHOLOGY AND Tech [id number] GENOMIC MEDICINE Specimen Blood Performing Organization Address City/[facility]ode Phone Number [place] [phone] [place] [address] PATHOLOGY AND GENOMIC MEDICINE * Carcinoembryonic antigen (CEA) (10/30/2017 10:36 AM SECURITY MESSENGER) CEA <0.5 See Note: ng/mL [facility] Comment: [place] Reference Range: Non-Smoker: <2.5 Smoker: <5.0 This test was performed using the Siemens chemiluminescent method. Values obtained from different assay methods cannot be used interchangeably. CEA levels, regardless of value, should not be interpreted as absolute evidence of the presence or absence of disease. Specimen Blood Resulting Agency Comment Performing Organization Information: Site ID: [id number] Name: [facility] Address: [address] [place] [address] Director: Simran Mcnulty MD Performing Organization Address City/State/Zipcode Phone Number [employer] [facility] [address] [place] [address] after 07/24/2017 Insurance Payer Benefit Subscriber ID Type Phone Address Plan / Group MEDICARE MEDICARE xxxxxxxxxx Medicare [place], [place] PART A AND B COMMERCIAL MISC MISC xxxxxxxx Commercial [address] ([place]) [place] [address] Advance Directives Patient has advance care planning documents on file. For more information, rama chavez contact: Maximo Krishna [address] [place] [address]
--- OUTSIDE RECORDS SUMMARY | 2018-07-25 09:22 | XMS REPORT | Clinical Summary ---
Author Author LAURA [employer] Organization [facility] [employer] [employer] [facility] Address Unknown Phone Unavailable Care Team Providers Care Instrument Technician Name Role Phone Chapin Lawson PCP Allergies Comments Active Allergy Reactions Severity Noted Date Codeine 10/05/2017 Medications End Date Status Medication Sig Dispensed Refills Start Date Active levothyroxine (SYNTHROID, Take 125 mcg 0 LEVOTHROID) 125 MCG by mouth tablet Every morning on an empty stomach. Active sotalol AF (BETAPACE AF) Take 80 mg by 0 80 MG tablet mouth 2 (two) times daily. Active spironolactone Take 100 mg 0 (ALDACTONE) 100 MG tablet by mouth daily. Active furosemide (LASIX) 20 MG Take 20 mg by 0 tablet mouth 2 (two) times daily. Active apixaban (ELIQUIS) 5 mg Take 5 mg by 0 Tab tablet mouth 2 (two) times daily. Active dorzolamide (TRUSOPT) 2 % 1 drop 3 0 ophthalmic solution (three) times daily. Active albuterol HFA (VENTOLIN Inhale 1 puff 0 HFA) 90 mcg/actuation by mouth via inhaler inhaler every 6 (six) hours as needed for Wheezing. Active nitroglycerin (NITROSTAT) Place 0.4 mg 0 0.4 MG SL tablet under the tongue every 5 (five) minutes as needed for Chest pain Put 1 pill under tongue every 5min as needed for chest pain.No more than 3 doses in 15min.Call 911 if pain is unrelieved 5min after 1st dose . Active Problems Not on file Encounters Care Team Description Date Type Specialty Morales Su MD UPPER ENDOSCOPY 10/06/2017 Surgery Maryann Pagan MD 10/06/2017 Anesthesia Event Morales Su MD 10/06/2017 Hospital Encounter 10/05/2017 Hospital Pre-Admission Testing Encounter Morales Su MD Cirrhosis of liver without ascites, unspecified hepatic cirrhosis type (HCC) 09/22/2017 Hospital Radiology Encounter Morales Su MD Cirrhosis of liver without ascites, unspecified hepatic cirrhosis type (HCC) (Primary Dx) 09/22/2017 Outside Orders after 07/24/2017 Social History Date Tobacco Use Types Packs/Day Years Used Never Smoker Smokeless Tobacco: Never Used Alcohol Use Drinks/Week oz/Week Comments No Sex Assigned at Date Recorded Not on file Industry Job Start Date Occupation Not on file Not on file Not on file Travel End Travel History Travel Start No recent travel history available. Last Filed Vital Signs Time Taken Vital Sign Reading 10/06/2017 1:00 PM PSYCHOLOGICAL SCIENCE PROFESSOR Blood Pressure 135/64 10/06/2017 1:00 PM PSYCHOLOGICAL SCIENCE PROFESSOR Pulse 60 10/06/2017 1:00 PM PSYCHOLOGICAL SCIENCE PROFESSOR Temperature 36.4 C (97.6 F) 10/06/2017 1:00 PM PSYCHOLOGICAL SCIENCE PROFESSOR Respiratory Rate 15 10/06/2017 1:00 PM PSYCHOLOGICAL SCIENCE PROFESSOR Oxygen Saturation 97% - Inhaled Oxygen - Concentration 10/06/2017 10:41 AM PSYCHOLOGICAL SCIENCE PROFESSOR Weight 62.1 kg (137 lb) 10/06/2017 10:41 AM PSYCHOLOGICAL SCIENCE PROFESSOR Height 167.6 cm (5' 6") 10/06/2017 10:41 AM PSYCHOLOGICAL SCIENCE PROFESSOR Body Mass Index 22.11 Plan of Treatment Not on file Procedures Comments Procedure Name Priority Date/Time Associated Diagnosis REPORT OF PROCEDURE - 10/06/2017 ENDOSCOPY URL 12:39 PM PSYCHOLOGICAL SCIENCE PROFESSOR REPORT OF PROCEDURE - 10/06/2017 ENDOSCOPY URL 12:33 PM PSYCHOLOGICAL SCIENCE PROFESSOR TISSUE EXAM AP Routine 10/06/2017 12:07 PM PSYCHOLOGICAL SCIENCE PROFESSOR COLONOSCOPY,BIOPSY 10/06/2017 iron defiency anemia 12:00 PM PSYCHOLOGICAL SCIENCE PROFESSOR Case Notes EGD COLON COLONOSCOPY,POLYPECTOMY 10/06/2017 iron defiency anemia 12:00 PM PSYCHOLOGICAL SCIENCE PROFESSOR Case Notes EGD COLON UPPER ENDOSCOPY,BIOPSY 10/06/2017 iron defiency anemia 12:00 PM PSYCHOLOGICAL SCIENCE PROFESSOR Case Notes EGD COLON COLONOSCOPY 10/06/2017 iron defiency anemia 12:00 PM PSYCHOLOGICAL SCIENCE PROFESSOR Case Notes EGD COLON UPPER ENDOSCOPY 10/06/2017 iron defiency anemia 12:00 PM PSYCHOLOGICAL SCIENCE PROFESSOR Case Notes EGD COLON US ABDOMINAL WITH DOPPLER Routine 09/22/2017 Cirrhosis of liver 11:59 AM PSYCHOLOGICAL SCIENCE PROFESSOR without ascites, unspecified hepatic cirrhosis type (HCC) after 07/24/2017 Results * REPORT OF PROCEDURE - ENDOSCOPY URL (10/06/2017 12:39 PM PSYCHOLOGICAL SCIENCE PROFESSOR) Narrative Performed At * REPORT OF PROCEDURE - ENDOSCOPY URL (10/06/2017 12:33 PM PSYCHOLOGICAL SCIENCE PROFESSOR) Narrative Performed At * Tissue Exam (10/06/2017 12:07 PM PSYCHOLOGICAL SCIENCE PROFESSOR) Case Report Surgical Pathology [facility] Report Case: [id number] Authorizing Provider:Morales Su MDCollected: 10/06/2017 1207 [facility]ing [facility] ENDOSCOPY SERVICESReceived: 10/06/2017 1444 Pathologist: Emely Tom MD Specimens: A) - Duodenal, bx B) - Gastric, bx C) - Biopsy, Gastroesophageal Junction, bx D) - Polyp, Colon - Right/Ascending, removal E) - Large Intestine, Colon - Right/Ascending, bx, mass F) - Polyp, Colon - Sigmoid, removal G) - Polyp, Colon - Rectum, removal DIAGNOSIS A. DUODENUM, BIOPSY: [facility] - DUODENAL MUCOSA WITH NO DIAGNOSTIC ALTERATION - NO EVIDENCE OF GLUTEN-SENSITIVE ENTEROPATHY - NEGATIVE FOR INFECTIOUS ORGANISMS, GRANULOMAS, DYSPLASIA, OR MALIGNANCY B. GASTRIC, BIOPSY: - CHRONIC INACTIVE GASTRITIS - FOCAL INTESTINAL METAPLASIA - NEGATIVE FOR HELICOBACTER ORGANISMS (WARTHIN-STARRY STAIN) - NEGATIVE FOR DYSPLASIA OR MALIGNANCY C. GASTRIC, GASTROESOPHAGEAL JUNCTION, BIOPSY: - GASTRIC CARDIAC-TYPE MUCOSA WITH CHRONIC INACTIVE GASTRITIS - NEGATIVE FOR HELICOBACTER ORGANISMS (DIFF-QUIK STAIN) - NEGATIVE FOR INTESTINAL METAPLASIA, DYSPLASIA, OR MALIGNANCY D. COLON, RIGHT/ASCENDING, POLYPECTOMY: - TUBULAR ADENOMA - NEGATIVE FOR HIGH-GRADE DYSPLASIA E. COLON, RIGHT/ASCENDING, MASS BIOPSY: - INVASIVE MODERATELY DIFFERENTIATED ADENOCARCINOMA (SEE COMMENT) F. COLON, SIGMOID, POLYPECTOMY: - HYPERPLASTIC POLYP G. COLON, RECTUM, POLYPECTOMY: - TUBULAR ADENOMA - NEGATIVE FOR HIGH-GRADE DYSPLASIA Signing Pathologist Direct Phone Line: [phone] COMMENT APPRAISER AUDITOR REVIEW: [facility] Yenifer Leong MD The above pathologist(s) have reviewed pertinent material and concur with the diagnosis. CPT Code(s) 10085 x 7, 714708 x 2 [facility] CLINICAL HISTORY Iron deficiency anemia [facility] GROSS DESCRIPTION The instrument, paperwork, [facility] containers and cassettes all read [id number]. Specimen A is received in a container of formalin labeled with the patient's name (All), medical record number and "duodenal" and consists of one fragment of hernandez-brown soft tissue measuring 0.2 cm in greatest dimension. It is inked with Eosin and totally submitted in cassette A1. Specimen B is received in formalin labeled with the patient's name (All), medical record number and "gastric" and consists of two hernandez-brown fragments of soft tissue measuring 0.2 and 0.3 cm in greatest dimension. They are inked with Eosin and totally submitted in cassette B1. Specimen C is received in formalin labeled with the patient's name (All), and medical record number and "GE junction biopsy" and consists of two fragments of hernandez-brown soft tissue measuring 0.1 cm in greatest dimension. They are inked with Eosin and totally submitted in one cassette C1. Specimen D is received in formalin labeled with the patient's name (All), and medical record number and "ascending colon polyp" and consists of two hernandez-brown fragments of polypoid tissue measuring 0.2 cm in greatest dimension. They are inked with Eosin and totally submitted in cassette D1. Specimen E is received in formalin labeled with the patient's name (All), and medical record number and "ascending colon" and consists of multiple fragments of hernandez-brown soft tissue measuring 0.1 cm in greatest dimension each. They are inked with Eosin and totally submitted in cassette E1. Specimen F is received in formalin labeled with the patient's name (All), and medical record number and "sigmoid colon polyp" and consists of two hernandez-brown fragments of soft tissue measuring 0.1 cm in greatest dimension. They are inked with Eosin and totally submitted in cassette F1. Specimen G is received in formalin labeled with the patient's name (All), and medical record number and "rectum polyp" and consists of one hernandez-brown fragment of soft tissue measuring 0.1 cm in greatest dimension. It is inked with Eosin and totally submitted in cassette G1. All cassettes are verified as latched and closed. /pl MICROSCOPIC DESCRIPTION A. All histologic sections [facility] have been microscopically examined. The pertinent microscopic examination findings, along with the gross examination findings, have been incorporated into the diagnosis rendered above. B. The histologic sections show gastric oxyntic and transitional mucosa with increased lamina propria plasma cells and reactive epithelial changes. Focal intestinal metaplasia is present. No dysplasia or malignancy is seen. A Warthin-Starry stain is negative for Helicobacter organisms. C. All histologic sections have been microscopically examined. The pertinent microscopic examination findings, along with the gross examination findings, have been incorporated into the diagnosis rendered above. D. The specimen shows a colonic polyp with hyperchromatic, elongated nuclei consistent with a tubular adenoma. Negative for high-grade dysplasia or malignancy. E. All histologic sections have been microscopically examined. The pertinent microscopic examination findings, along with the gross examination findings, have been incorporated into the diagnosis rendered above. F. The specimen shows fragments of hyperplastic, serrated colon mucosa without dysplasia, consistent with a hyperplastic polyp. Negative for dysplasia or malignancy. G. The specimen shows a colonic polyp with hyperchromatic, elongated nuclei consistent with a tubular adenoma. Negative for high-grade dysplasia or malignancy. SPECIAL STUDIES The following special studies [facility] were performed on this case and the interpretation is incorporated in the diagnostic report above: Warthin-Starry stains were performed on parts B and C. Control material (internal or externally reviewed) examined and shown to be satisfactory for patient interpretation. Specimen Tissue - Duodenal Performing Organization Address City/State/Zipcode Phone Number [facility] [id number] [place] [address] * US abdominal with doppler (09/22/2017 11:59 AM PSYCHOLOGICAL SCIENCE PROFESSOR) Narrative Performed At FINAL REPORT [facility] Ultrasound of the right upper quadrant and Duplex Doppler. TECHNIQUE: Sonographic assessment of the abdomen was performed as well as a detailed duplex Doppler assessment of the liver including spectral wave forms and color-flow analysis of the major vascular structures. Clinical History: Cirrhosis. Comparison study: Abdominal ultrasound dated 01/23/2012. Findings: The liver is coarse and nodular in echotexture with no focal masses. It measures 15.2 cm in length. There is no evidence of intra or extrahepatic biliary dilatation with the common bile duct measuring two mm.The gallbladder is unremarkable with no gallstones or sonographic evidence of cholecystitis. The visualized portions of the pancreas are normal in appearance. No ascites is present. The right kidney measures 10.5 x 4.8 x 6.1 there is a 1.6 x 2.0 x 1.7 cm parapelvic cyst as well as a 7 mm cyst inferiorly. No hydronephrosis, renal mass or calculus.No pleural effusions are seen.The proximal aorta and IVC are unremarkable. Doppler interrogation of the liver demonstrates a main portal vein diameter measuring 1.2 cm with a peak systolic velocity of 44 cm/sec. Hepatopetal inflow is seen in the right, left, main portal and splenic veins. There are pulsatile waveforms seen in the portal venous system. The resistive indices in the proper, right and left hepatic arteries are 0.79, 0.74 and 0.65 respectively. Outflow with appropriate directionality is seen in the IVC, hepatic venous confluence as well as the right, middle and left hepatic veins. Impression: Cirrhotic liver without evidence of hepatic mass. Pulsatile waveforms in the portal venous system suggesting right heart failure. Signed: Allan Drake MD Report Verified Date/Time:09/22/2017 13:14:22 Reading Location: [facility] Radiology Reading Room Procedure Note Interface, External Ris In - 09/22/2017 1:16 PM PSYCHOLOGICAL SCIENCE PROFESSOR FINAL REPORT Ultrasound of the right upper quadrant and Duplex Doppler. TECHNIQUE: Sonographic assessment of the abdomen was performed as well as a detailed duplex Doppler assessment of the liver including spectral wave forms and color-flow analysis of the major vascular structures. Clinical History: Cirrhosis. Comparison study: Abdominal ultrasound dated 01/23/2012. Findings: The liver is coarse and nodular in echotexture with no focal masses. It measures 15.2 cm in length. There is no evidence of intra or extrahepatic biliary dilatation with the common bile duct measuring two mm. The gallbladder is unremarkable with no gallstones or sonographic evidence of cholecystitis. The visualized portions of the pancreas are normal in appearance. No ascites is present. The right kidney measures 10.5 x 4.8 x 6.1 there is a 1.6 x 2.0 x 1.7 cm parapelvic cyst as well as a 7 mm cyst inferiorly. No hydronephrosis, renal mass or calculus. No pleural effusions are seen. The proximal aorta and IVC are unremarkable. Doppler interrogation of the liver demonstrates a main portal vein diameter measuring 1.2 cm with a peak systolic velocity of 44 cm/sec. Hepatopetal inflow is seen in the right, left, main portal and splenic veins. There are pulsatile waveforms seen in the portal venous system. The resistive indices in the proper, right and left hepatic arteries are 0.79, 0.74 and 0.65 respectively. Outflow with appropriate directionality is seen in the IVC, hepatic venous confluence as well as the right, middle and left hepatic veins. Impression: Cirrhotic liver without evidence of hepatic mass. Pulsatile waveforms in the portal venous system suggesting right heart failure. Signed: Allan Drake MD Report Verified Date/Time: 09/22/2017 13:14:22 Reading Location: [facility] Radiology Reading Room Performing Organization Address City/State/Zipcode Phone Number GE RIS after 07/24/2017 Insurance Payer Benefit Subscriber ID Type Phone Address Plan / Group MEDICARE MEDICARE A xxxxxxxxxx Medicare B MCR SUPPLEMENT/INDIVIDUAL MUTUAL OF xxxxxxxx [facility]
--- OUTSIDE RECORDS SUMMARY | 2018-07-25 09:23 | XMS REPORT ---
Author Author Chapin Lawson [facility] [employer] Address Unknown Phone Unavailable Care Team Providers Care Watch Dial Maker Name Role Phone Chapin Lawson CP Unavailable Allergies, Adverse Reactions, Alerts Substance Reaction Event Type Codeine Info Not Available Non Drug Allergy Problems Problem Type Condition Code Onset Dates Condition Status Problem Atrial fibrillation 427.31 Active Problem Essential (primary) hypertension I10 Active Problem Paroxysmal atrial fibrillation I48.0 Active Problem Insomnia, unspecified G47.00 Active Assessment Anemia, unspecified D64.9 Active Problem Chronic diastolic (congestive) heart failure I50.32 Active Assessment Other specified hypothyroidism E03.8 Active Problem Mild intermittent asthma, uncomplicated J45.20 Active Problem Heart failure, unspecified I50.9 Active Problem Hypothyroidism, unspecified E03.9 Active Problem Other specified hypothyroidism E03.8 Active Problem Allergic rhinitis, unspecified J30.9 Active Problem Unspecified essential hypertension 401.9 Active Problem Intrinsic asthma, unspecified 493.10 Active Assessment Cellulitis of left upper limb L03.114 Active Assessment Laceration with foreign body of left forearm, initial encounter S51.822A Active Problem Intrinsic asthma, with (acute) exacerbation 493.12 Active Problem Cirrhosis of liver without mention of alcohol 571.5 Active Problem Unspecified hypothyroidism 244.9 Active Problem Congestive heart failure, unspecified 428.0 Active Problem Unspecified cardiac dysrhythmia 427.9 Active Problem Allergic rhinitis, cause unspecified 477.9 Active Medications Medication Code System Code Instructions Start Date End Date Status Dosage Astelin ND 93380412649 137 MCG/SPRAY Nasally Twice a day Jul 25, 2013 Active 1 puff in each nostril Atenolol ND 22204370957 50 MG Orally Once a day Active 1 tablet Zantac 150 Maximum Strength ND 16167015770 150 MG Orally Twice a day November 19, 2015 Active 1 tablet Flonase ND 97699882158 50 MCG/ACT Nasally Once a day Active 2 sprays in each nostril Augmentin ND 10259238116 875-125 MG Orally every 12 hrs March 11, 2018 March 21, 2018 Active 1 tablet Furosemide [facility] 96478106318 20 mg Orally Active take 1 tablet by mouth every day Synthroid [facility] 77385810867 125 Active TAKE 1 TABLET BY MOUTH EVERY MORNING ON AN EMPTY STOMACH Isosorbide Mononitrate CR [facility] 18425428197 30 MG Orally Once a day Active 1 tablet Eliquis [facility] 87237792052 5 MG Orally once a day Active 1 tablet Valtrex [facility] 55723071578 1 GM Orally tid Sep 15, 2011 Active 1 tablet Synthroid [facility] 72985234089 125 MCG Orally daily Active take one tablet by mouth on an empty stomach in the morning once a day Alprazolam [facility] 09024627142 0.5 MG Orally once every night prn Jul 20, 2017 Active 1 tablet ProAir HFA [facility] 17255609575 108 (90 Base) MCG/ACT Inhalation every 4 hrs Active 2 puffs as needed Vital Signs Date/Time: March 11, 2018 BMI 20.33 Index Weight 126 lbs Height 66 in Respiratory Rate 17 /min Cardiac Monitoring Heart Rate 70 /min Blood Pressure Diastolic 72 mm Hg Blood Pressure Systolic 118 mm Hg Temperature 98.2 F Results Name Result Date Reference Range Unit Abnormality Flag THYROID PANEL WITH TSH, 3RD GENERATION (7444) ----FREE T4 INDEX (T7) 3.0 [id number] 1.4-3.8 N ----TSH 0.04 64590218 0.40-4.50 mIU/L L ----T3 UPTAKE 41 71287510 22-35 % H ----T4 (THYROXINE), TOTAL 7.4 72674547 4.5-12.0 mcg/dL N CBC (INCLUDES DIFF/PLT) (2489) ----ABSOLUTE BASOPHILS 51 61545438 0-200 cells/uL N ----ABSOLUTE EOSINOPHILS 170 64177259 15-500 cells/uL N ----LYMPHOCYTES 20.3 60904098 % N ----NEUTROPHILS 65.2 15510069 % N ----PLATELET COUNT 205 31383585 140-400 Thousand/uL N ----EOSINOPHILS 3.7 05554357 % N ----RDW 17.2 64646141 11.0-15.0 % H ----MONOCYTES 9.7 44022879 % N ----MCHC 31.1 60970538 32.0-36.0 g/dL L ----MCH 25.2 93836648 27.0-33.0 pg L ----MCV 81.0 83796150 80.0-100.0 fL N ----ABSOLUTE NEUTROPHILS 2999 29083553 6386-1088 cells/uL N ----MPV 11.0 03116842 7.5-12.5 fL N ----ABSOLUTE MONOCYTES 446 81463664 200-950 cells/uL N ----ABSOLUTE LYMPHOCYTES 934 26524212 850-3900 cells/uL N ----BASOPHILS 1.1 84159987 % N ----WHITE BLOOD CELL COUNT 4.6 51514349 3.8-10.8 Thousand/uL N ----RED BLOOD CELL COUNT 4.48 97396155 3.80-5.10 Million/uL N ----HEMOGLOBIN 11.3 36836727 11.7-15.5 g/dL L ----HEMATOCRIT 36.3 29745269 35.0-45.0 % N COMPREHENSIVE METABOLIC PANEL W/eGFR (62008) ----SODIUM 140 03049750 135-146 mmol/L N ----BUN/CREATININE RATIO NOT APPLICABLE 77859347 6-22 (calc) ----CHLORIDE 107 26136772 98-110 mmol/L N ----POTASSIUM 4.5 63275625 3.5-5.3 mmol/L N ----CALCIUM 9.1 90259842 8.6-10.4 mg/dL N ----PROTEIN, TOTAL 6.8 73012691 6.1-8.1 g/dL N ----CARBON DIOXIDE 24 19204584 20-31 mmol/L N ----ALBUMIN/GLOBULIN RATIO 1.6 28828553 1.0-2.5 (calc) N ----eGFR NON-AFR. CITIZ[place] 78 92389833 > OR=60 mL/min/1.73m2 N ----BILIRUBIN, TOTAL 0.9 72415660 0.2-1.2 mg/dL N ----eGFR 90 68030544 > OR=60 mL/min/1.73m2 N ----UREA NITROGEN (BUN) 18 20180315 7-25 mg/dL N ----ALBUMIN 4.2 20180315 3.6-5.1 g/dL N ----GLOBULIN 2.6 20180315 1.9-3.7 g/dL (calc) N ----CREATININE 0.77 20180315 0.60-0.93 mg/dL N ----ALT 12 20180315 6-29 U/L N ----GLUCOSE 83 20180315 65-99 mg/dL N ----ALKALINE PHOSPHATASE 93 20180315 33-130 U/L N ----AST 23 20180315 10-35 U/L N Summary Purpose eClinicalWorks Submission
[2018-07-25] MEDS ORDERED: BROMFED DM COU118 ML PO (10:13)
[2018-07-25] MEDS ORDERED: ZOFRAN4 MG PO (10:13)
[2018-07-25] MEDS ORDERED: TESSALON PERLE100 MG PO (10:13)
[2018-07-25] MEDS ORDERED: LIDOCAINE HCL50 ML TOP (10:13)
== END 2018-07-25 10:51 | disposition home or self-care (01) ==
LOC: FSED 09:20
DX: R05 Cough (principal); J02.9 Acute pharyngitis, unspecified; B34.9 Viral infection, unspecified; I10 Essential (primary) hypertension; I51.9 Heart disease, unspecified; Z95.0 Presence of cardiac pacemaker; Z85.038 Personal history of other malignant neoplasm of large intestine
CPT/HCPCS: 87400; 99283

== ENCOUNTER 2022-02-07 12:29 | Emergency (ER) | payer MEDICARE, OTHER ==
[~2022-02-07] VITALS: Ht 167.6 cm; Wt 61.7 kg
[~2022-02-07 12:29] MED LIST: BROMFED DM COU118 ML PO; LIDOCAINE HCL50 ML TOP; TESSALON PERLE100 MG PO; ZOFRAN4 MG PO
[2022-02-07] MEDS ORDERED: FLECAINIDE ACE100 MG PO (13:24)
[2022-02-07] MEDS ORDERED: LEVOTHYROXINE112 MCG PO (13:24)
[2022-02-07] MEDS ORDERED: VENTOLIN HFA18 GM INH (13:24)
[2022-02-07] MEDS ORDERED: ATENOLOL50 MG PO (13:24)
[2022-02-07] MEDS ORDERED: COMBIGAN EYE DRO5 ML OP (13:24)
[2022-02-07] MEDS ORDERED: PROAIR HFA INH8.5 GM (13:24)
[2022-02-07] MEDS ORDERED: FUROSEMIDE40 MG PO (13:24)
[2022-02-07] MEDS ORDERED: ELIQUIS5 MG PO (13:24)
[2022-02-07] MEDS ORDERED: EPIPEN JR0.15 MG/01 (13:24)
[2022-02-07] MEDS ORDERED: RESTASIS1 EACH (13:24)
[2022-02-07] MEDS ORDERED: SPIRONOLACTONE25 MG PO (13:24)
[2022-02-07] MEDS ORDERED: FAMOTIDINE 20 MG/2 ML VIAL IV STA (13:52)
[2022-02-07] MEDS ORDERED: ONDANSETRON HCL INJ 2MG/ML 2ML 2 MG/ML VIAL IV STA (13:52)
[2022-02-07] MEDS ORDERED: SODIUM CHLORIDE 0.9% 1000ML 1,000 ML IV ONE (14:00)
[2022-02-07] MEDS ORDERED: PROMETHAZINE 12.5MG/ NACL 0.9% 12.5 MG/50 ML BAG IV ONE (14:30)
[2022-02-07] MEDS ORDERED: PROMETHAZINE HCL (IM) 25 MG/ML VIAL IM ONE (15:18)
[2022-02-07] MEDS ORDERED: ONDANSETRON ODT4 MG PO (17:52)
[2022-02-07 18:20] VITALS: BP 140/77
== END 2022-02-07 18:37 | disposition home or self-care (01) ==
LOC: FSED 13:37
DX: R11.2 Nausea with vomiting, unspecified (principal); K29.70 Gastritis, unspecified, without bleeding; I50.9 Heart failure, unspecified; I10 Essential (primary) hypertension; E03.9 Hypothyroidism, unspecified; I25.10 Atherosclerotic heart disease of native coronary artery without angina pectoris; R94.31 Abnormal electrocardiogram [ECG] [EKG]; Z87.09 Personal history of other diseases of the respiratory system
CPT/HCPCS: 71046; 74176; 80053; 82553; 84484; 85025; 93005; 96374; 96376; 99284; J2405; J2550